=== PATIENT | male | born 1990 | race African-American/Black ===

== ENCOUNTER 2018-10-05 15:32 | Emergency (ER) | payer SELFPAY ==
[2018-10-05] MEDS ORDERED: ONDANSETRON 4 MG/2 ML VIAL ONE (16:22)
[2018-10-05] MEDS ORDERED: MAGNE/ALUM HYDROXD 30 ML UCUP ONE (16:22)
[2018-10-05] MEDS ORDERED: PANTOPRAZOLE 40 MG INJ ONE (16:22)
[2018-10-05] MEDS ORDERED: NA CHLORIDE 0.9% 1,000 ML ONE (16:22)
[2018-10-05 16:25] LABS: Absolute Lymphocytes (CBC) 1.1 K/uL (0.7-4.9); Absolute Monocytes 0.7 K/uL (0.1-1.3); Absolute Neutrophil 3.9 K/uL (1.8-8.0); Basophils % 0.2 % (0-1.3); Eosinophils % 3.9 % (0-4.4); Hematocrit 43.9 % (39.6-49.0); Lymphocytes % 18.9 % (15.3-44.8); MCH 33.2 pg (27.0-35.0); MCV 96.5 fL (80-100); MPV 7.8 fL (7.6-11.3); Monocytes % 11.3 % (3.3-12.3); RBC Red Blood Cell Count 4.55 M/uL (4.33-5.43)
[2018-10-05] MEDS ORDERED: LIDOCAINE VISCOUS 2% SOLN 15 ML UDC ONE (16:33)
[2018-10-05 16:45] LABS: ALT/SGPT 35 U/L (12-78); AST/SGOT 37 U/L (15-37); Albumin 3.8 g/dL (3.4-5.0); Alkaline Phosphatase 77 U/L (45-117); BUN Blood Urea Nitrogen 11 mg/dL (7-18); Bicarbonate 28 mmol/L (21-32); Bilirubin Direct 0.2 mg/dL (0-0.2); Bilirubin Total 0.5 mg/dL (0.2-1.0); Glucose Level 81 mg/dL (74-106); Lipase 166 U/L (73-393); Potassium 3.6 mmol/L (3.5-5.1); Protein, Total 7.4 g/dL (6.4-8.2); Sodium Level 136 mmol/L (136-145)
--- NOTE | 2018-10-05 17:24 | RAD REPORT ---
EXAM DESCRIPTION: RAD - Chest Single View - 10/05/2018 4:20 pm CLINICAL HISTORY: epigastric pain Chest pain. COMPARISON: No comparisons FINDINGS: Portable technique limits examination quality. The lungs are grossly clear. The heart is normal in size. No displaced fractures. IMPRESSION: No acute intrathoracic process suspected.
--- NOTE | 2018-10-05 17:59 | RAD REPORT ---
EXAM DESCRIPTION: US - Abdomen Exam Limited - 10/05/2018 5:45 pm CLINICAL HISTORY: EPIGASTRIC PAIN COMPARISON: No comparisons FINDINGS: The gallbladder demonstrates no gallstones. 4 mm polyp is suspected along the gallbladder wall. No pericholecystic fluid or gallbladder wall thickening. The common bile duct is normal measuri ng 4 mm. The liver demonstrates no findings of intrahepatic biliary dilatation. IMPRESSION: 4 mm gallbladder polyp, otherwise negative study.
--- NOTE | 2018-10-05 19:15 | ER ---
Nurse's Notes [facility] Name: Ruben Hadley Age: 28 yrs Sex: Male : 1990 Arrival Date: 10/05/2018 Time: 15:36 Bed 24 Private MD: None, None Diagnosis: Epigastric pain Presentation: 10/05 15:39 Presenting complaint: Patient states: Abd pain since Sunday, worsening. Reports black la1 formed stool x3 today. Pt reports he had the H. Pylori test in July and it was negative, pt denies vomiting. Transition of care: patient was not received from another setting of care. Onset of symptoms was October 05, 2018. Risk Assessment: Do you want to hurt yourself or someone else? Patient reports no desire to harm self or others. Initial Sepsis Screen: Does the patient meet any 2 criteria? No. Patient's initial sepsis screen is negative. Does the patient have a suspected source of infection? No. Patient's initial sepsis screen is negative. Care prior to arrival: None. 15:39 Method Of Arrival: Ambulatory la1 15:39 Acuity: FARHAT 3 la1 Historical: - Allergies: 15:42 No Known Allergies; la1 - Home Meds: 15:42 None [Active]; la1 - PMHx: 15:42 None; la1 - PSHx: 15:42 None; la1 - Immunization history:: Adult Immunizations up to date. - Social history:: Smoking status: Patient uses tobacco products, smokes one pack cigarettes per day. Patient uses alcohol, on a daily basis. claims drinking about a 6 pack/day. - Ebola Screening: : Patient negative for fever greater than or equal to 101.5 degrees Fahrenheit, and additional compatible Ebola Virus Disease symptoms. Screenin:00 Abuse screen: Denies threats or abuse. Denies injuries from another. Nutritional kr2 screening: No deficits noted. Tuberculosis screening: No symptoms or risk factors identified. Fall Risk None identified. Assessment: 16:00 General: Appears in no apparent distress. uncomfortable, slender, well groomed, well kr2 developed, Behavior is calm, cooperative, appropriate for age. Pain: Complains of pain in epigastric area Pain radiates to right upper quadrant and left upper quadrant Pain currently is 7 out of 10 on a pain scale. Quality of pain is described as stabbing, Is intermittent. Neuro: Level of Consciousness is awake, alert, obeys commands, Oriented to person, place, time, situation. Cardiovascular: Capillary refill < 3 seconds in bilateral fingers Patient's skin is warm and dry. Respiratory: Airway is patent Respiratory effort is even, unlabored, Respiratory pattern is regular, symmetrical. GI: Abdomen is flat, non-distended, Bowel sounds present X 4 quads. Abd is soft X 4 quads Abdomen is tender to palpation in right upper quadrant and left upper quadrant Patient currently denies vomiting. EENT: Derm: Skin is intact, is healthy with good turgor, Skin is pink, warm \T\ dry. Musculoskeletal: Circulation, motion, and sensation intact. 17:00 Reassessment: Patient appears in no apparent distress at this time. Patient and/or kr2 family updated on plan of care and expected duration. Pain level reassessed. Patient is alert, oriented x 3, equal unlabored respirations, skin warm/dry/pink. Patient states feeling better. 18:00 Reassessment: Patient appears in no apparent distress at this time. Patient and/or kr2 family updated on plan of care and expected duration. Pain level reassessed. Patient is alert, oriented x 3, equal unlabored respirations, skin warm/dry/pink. Patient states feeling better. 18:36 Reassessment: Patient given lemon absentee-shawnee soda for PO challenge. kr2 Vital Signs: 15:42 BP 161 / 105; Pulse 85; Resp 16; Temp 97.8(TE); Pulse Ox 98% on R/A; Weight 65.77 kg; la1 Height 5 ft. 11 in. (180.34 cm); Pain 10/10; 16:49 BP 145 / 98; Pulse 77; Resp 16; Pulse Ox 100% ; kr2 17:30 BP 145 / 99; Pulse 70; Resp 16; Pulse Ox 100% ; kr2 18:34 BP 151 / 100; Pulse 84; Resp 16; Pulse Ox 99% on R/A; kr2 15:42 Body Mass Index 20.22 (65.77 kg, 180.34 cm) la1 ED Course: 15:36 Patient arrived in ED. sb2 15:36 None, None is Private Physician. sb2 15:41 Triage completed. la1 15:42 Arm band placed on right wrist. la1 15:46 Page, Manuel, [facility]. cp 15:46 Chester Jin MD is Attending Physician. cp 16:10 Initial lab(s) drawn, by me, sent to lab. jp3 16:17 X-ray completed. Portable x-ray completed in exam room. Patient tolerated procedure tm4 well. 16:20 XRAY Chest (1 view) In Process Unspecified. EDMS 16:20 Placed in gown. Bed in low position. Call light in reach. Side rails up X 1. Side rails jp3 up X2. Warm blanket given. Pillow given. Pulse ox on. NIBP on. 16:20 Inserted saline lock: 22 gauge in right forearm, using aseptic technique. Blood jp3 collected. 16:20 Basic Metabolic Panel Sent. jp3 16:20 Lipase Sent. jp3 16:21 Hepatic Function Sent. jp3 16:21 Creatinine for Radiology Sent. jp3 16:21 CBC with Diff Sent. jp3 17:05 Diane Sykes, RN is Primary Nurse. kr2 17:43 Ultrasound completed. Patient tolerated well. sg3 17:45 US Abdomen Limited In Process Unspecified. EDMS 18:42 Royce Callejas MD is Referral Physician. cp 19:04 No provider procedures requiring assistance completed. IV discontinued, intact, kr2 bleeding controlled, No redness/swelling at site. Pressure dressing applied. Administered Medications: 16:29 Drug: NS 0.9% 1000 ml Route: IV; Rate: 1 bolus; Site: right forearm; kr2 17:30 Follow up: Response: No adverse reaction; IV Status: Completed infusion kr2 16:30 Drug: Zofran 4 mg Route: IVP; Site: right forearm; kr2 17:00 Follow up: Response: No adverse reaction; Nausea is decreased kr2 16:32 Drug: ProTONIX 40 mg Route: IVP; Site: right forearm; kr2 17:00 Follow up: Response: No adverse reaction; Pain is decreased kr2 16:35 Drug: GI Cocktail without - (Maalox Suspension 30 ml, Lidocaine Liquid 2 % 15 kr2 ml) Route: PO; 17:15 Follow up: Response: No adverse reaction; Pain is decreased kr2 Outcome: 18:43 Discharge ordered by . cp 19:04 Discharged to home ambulatory, with family. kr2 19:04 Condition: improved 19:04 Discharge instructions given to patient, family, Instructed on discharge instructions, follow up and referral plans. medication usage, Demonstrated understanding of instructions, follow-up care, medications, Prescriptions given X 3. 19:05 Patient left the ED. [email or web address] Signatures: Dispatcher [employer] EDMS MillerDione tm4 Morirs Bennett RN RN la1 Manuel Villanueva PA PA cp Reaves, Karey, RN RN kr2 Isha Gibbons3 Susu Barnard2 Aniket Payton jp3
--- NOTE | 2018-10-05 19:15 | EDPHYS ---
Physician Documentation [facility] Name: Ruben Hadley Age: 28 yrs Sex: Male : 1990 Arrival Date: 10/05/2018 Time: 15:36 Bed 24 Private MD: None, None ED Physician Chester Jin HPI: 10/05 16:05 This 28 yrs old Black Male presents to ER via Ambulatory with complaints of Abdominal cp Pain, Bloody Stools. 16:05 The patient presents with abdominal pain in the epigastric area. cp 16:05 Onset: The symptoms/episode began/occurred 5 day(s) ago. The symptoms do not radiate. cp Associated signs and symptoms: Pertinent positives: nausea, dark colored stool, Pertinent negatives: diarrhea, dysuria, fever, vomiting blood. 16:05 The symptoms are described as stabbing. Modifying factors: the symptoms are aggravated cp by pressure. 16:05 Patient reports 3 episodes of dark colored stool today, but states he took Pepto Bismol cp last night for pain. Historical: - Allergies: 15:42 No Known Allergies; la1 - Home Meds: 15:42 None [Active]; la1 - PMHx: 15:42 None; la1 - PSHx: 15:42 None; la1 - Immunization history:: Adult Immunizations up to date. - Social history:: Smoking status: Patient uses tobacco products, smokes one pack cigarettes per day. Patient uses alcohol, on a daily basis. claims drinking about a 6 pack/day. - Ebola Screening: : Patient negative for fever greater than or equal to 101.5 degrees Fahrenheit, and additional compatible Ebola Virus Disease symptoms. ROS: 16:10 Constitutional: Negative for body aches, chills, fever, poor PO intake. cp 16:10 Eyes: Negative for injury, pain, redness, and discharge. cp 16:10 ENT: Negative for drainage from ear(s), ear pain, sore throat, difficulty swallowing, difficulty handling secretions. 16:10 Cardiovascular: Negative for chest pain, edema, palpitations. 16:10 Respiratory: Negative for cough, shortness of breath, wheezing. 16:10 Abdomen/GI: Positive for abdominal pain, of the epigastric area, dark colored stool, Negative for vomiting, diarrhea, constipation, rectal pain. 16:10 Back: Negative for pain at rest, pain with movement, radiated pain. 16:10 : Negative for urinary symptoms. 16:10 Skin: Negative for cellulitis, rash. 16:10 Neuro: Negative for altered mental status, headache, syncope, weakness. 16:10 All other systems are negative. Exam: 16:17 Constitutional: The patient appears in no acute distress, alert, awake, non-toxic, well cp developed, well nourished. 16:17 Head/Face: Normocephalic, atraumatic. Eyes: Pupils equal round and reactive to light, cp extra-ocular motions intact. Lids and lashes normal. Conjunctiva and sclera are non-icteric and not injected. Cornea within normal limits. Periorbital areas with no swelling, redness, or edema. ENT: Nares patent. No nasal discharge, no septal abnormalities noted. Tympanic membranes are normal and external auditory canals are clear. Oropharynx with no redness, swelling, or masses, exudates, or evidence of obstruction, uvula midline. Mucous membranes moist. Chest/axilla: Normal chest wall appearance and motion. Nontender with no deformity. No lesions are appreciated. 16:17 Cardiovascular: Rate: normal, Rhythm: regular, Edema: is not appreciated, JVD: is not appreciated. 16:17 Respiratory: the patient does not display signs of respiratory distress, Respirations: normal, Breath sounds: are clear throughout, no decreased breath sounds, no stridor, no wheezing. 16:17 Abdomen/GI: Inspection: abdomen appears normal, Bowel sounds: active, all quadrants, Palpation: soft, in all quadrants, moderate abdominal tenderness, in the epigastric area, rebound tenderness, is not appreciated, voluntary guarding, is elicited in the epigastric area, involuntary guarding, is not appreciated. 16:17 Back: pain, is absent, ROM is normal. 16:17 Skin: cellulitis, is not appreciated, no rash present. 16:17 Neuro: Orientation: to person, place \T\ time. Mentation: is normal, Cerebellar function: is grossly normal, Motor: is normal, Sensation: is normal. Vital Signs: 15:42 BP 161 / 105; Pulse 85; Resp 16; Temp 97.8(TE); Pulse Ox 98% on R/A; Weight 65.77 kg; la1 Height 5 ft. 11 in. (180.34 cm); Pain 10/10; 16:49 BP 145 / 98; Pulse 77; Resp 16; Pulse Ox 100% ; kr2 17:30 BP 145 / 99; Pulse 70; Resp 16; Pulse Ox 100% ; kr2 18:34 BP 151 / 100; Pulse 84; Resp 16; Pulse Ox 99% on R/A; kr2 15:42 Body Mass Index 20.22 (65.77 kg, 180.34 cm) la1 MDM: 15:51 Patient medically screened. cp 16:25 Differential diagnosis: cholecystitis, Cholelithiasis, gastritis, gastroesophageal cp reflux disease, pancreatitis, Peptic Ulcer Disease, Perf. Duodenal Ulcer, Perf. Gastric Ulcer, Ureterolithiasis, urinary tract infection. 18:40 Data reviewed: vital signs, nurses notes, lab test result(s), radiologic studies, plain cp films, ultrasound. 18:40 Test interpretation: by ED physician or midlevel provider: plain radiologic studies. cp Counseling: I had a detailed discussion with the patient and/or guardian regarding: the historical points, exam findings, and any diagnostic results supporting the discharge/admit diagnosis, lab results, radiology results, the need for outpatient follow up, a master data analyst, to return to the emergency department if symptoms worsen or persist or if there are any questions or concerns that arise at home, smoking cessation. Response to treatment: the patient's symptoms have markedly improved after treatment, VSS. Pain improved with meds. Will discharge to home for continued monitoring. Special discussion: Based on the patient's Hx, exam, and Dx evaluation, there is no indication for emergent surgery or inpatient Tx. It is understood by the patient/guardian that if the Sx's persist or worsen they need to return immediately for re-evaluation. 10/05 15:59 Order name: Basic Metabolic Panel; Complete Time: 16:56 10/05 15:59 Order name: CBC with Diff; Complete Time: 16:56 10/05 15:59 Order name: Creatinine for Radiology; Complete Time: 17:01 10/05 15:59 Order name: Hepatic Function; Complete Time: 16:56 10/05 17:13 Interpretation: Normal except: GLOB 3.6. 10/05 15:59 Order name: Lipase; Complete Time: 16:56 10/05 16:56 Interpretation: Reviewed. 10/05 15:59 Order name: XRAY Chest (1 view); Complete Time: 18:09 10/05 18:10 Interpretation: Report review. 10/05 15:59 Order name: IV Saline Lock; Complete Time: 16:20 10/05 15:59 Order name: Labs collected and sent; Complete Time: 16:21 10/05 17:03 Order name: US Abdomen Limited; Complete Time: 18:09 10/05 18:10 Interpretation: Report reviewed. 10/05 17:03 Order name: NPO; Complete Time: 17:05 10/05 18:10 Order name: PO challenge; Complete Time: 18:25 cp Administered Medications: 16:29 Drug: NS 0.9% 1000 ml Route: IV; Rate: 1 bolus; Site: right forearm; kr2 17:30 Follow up: Response: No adverse reaction; IV Status: Completed infusion kr2 16:30 Drug: Zofran 4 mg Route: IVP; Site: right forearm; kr2 17:00 Follow up: Response: No adverse reaction; Nausea is decreased kr2 16:32 Drug: ProTONIX 40 mg Route: IVP; Site: right forearm; kr2 17:00 Follow up: Response: No adverse reaction; Pain is decreased kr2 16:35 Drug: GI Cocktail without - (Maalox Suspension 30 ml, Lidocaine Liquid 2 % 15 kr2 ml) Route: PO; 17:15 Follow up: Response: No adverse reaction; Pain is decreased kr2 Disposition: 10/06 10:10 Co-signature as Attending Physician, Chester Jin MD. Disposition: 10/05/18 18:43 Discharged to Home. Impression: Epigastric pain. - Condition is Stable. - Discharge Instructions: Gastritis, Adult, Peptic Ulcer, Upper Endoscopy, Food Choices for Peptic Ulcer Disease. - Prescriptions for Carafate 1 gram Oral Tablet - take 1 tablet by ORAL route 4 times per day take on an empty stomach, beginning on waking and last dose at bedtime. dissolve tablet in small amount warm water prior to ingestion; 100 tablet. Protonix 40 mg Oral Tablet - take 1 tablet by ORAL route once daily; 30 tablet. Zofran 4 mg Oral Tablet - take 1 tablet by ORAL route every 12 hours As needed; 20 tablet. - Medication Reconciliation Form, Thank You Letter, Antibiotic Education, Prescription Opioid Use form. - Follow up: Royce Callejas MD; When: 5 - 6 days; Reason: symptoms continue. - Problem is new. - Symptoms have improved. Signatures: Dispatcher [employer] Morris Kulkarni RN RN la1 Manuel Villanueva PA PA cp Chester Jin MD MD Diane Sykes RN RN kr2 Corrections: (The following items were deleted from the chart) 10/05 19:04 15:59 Urine Dipstick-Ancillary ordered. cp kr2 19:05 18:43 10/05/2018 18:43 Discharged to Home. Impression: Epigastric pain. Condition is kr2 Stable. Forms are Medication Reconciliation Form, Thank You Letter, Antibiotic Education, Prescription Opioid Use. Follow up: Royce Callejas; When: 5 - 6 days; Reason: symptoms continue. Problem is new. Symptoms have improved. cp
[2018-10-05 19:21] VITALS: TEMP 97.8
[2018-10-05 19:24] VITALS: BP 151/100; O2SAT 99
== END 2018-10-05 19:05 | disposition home or self-care (01) ==
LOC: ER 15:32
DX: K82.4 Cholesterolosis of gallbladder (principal); F17.210 Nicotine dependence, cigarettes, uncomplicated
CPT/HCPCS: 36415; 71045; 76705; 80048; 80076; 83690; 85025; 96361; 96374; 96375; 99284; C9113; J2405; J7030